=== PATIENT | female | born 1990 | race African-American/Black ===

== ENCOUNTER 2017-06-01 07:46 | Inpatient (IN) | payer OTHER ==
[~2017-06-01 07:46] MED LIST: SUGAMMADEX SODIUM 200 MG/2 ML VIAL IV
[2017-06-01] MEDS ORDERED: METHYLERGONOVINE 0.2 MG INJ IM ×2 (09:00→22:00)
[2017-06-01] MEDS ORDERED: MISOPROSTOL 200 MCG TAB PR ×2 (09:00→22:00)
[2017-06-01] MEDS ORDERED: CARBOPROST 250 MCG INJ IM ×2 (09:00→22:00)
[2017-06-01] MEDS ORDERED: OXYTOCIN 30 UNITS/LR 500 ML IV ×2 (09:00→22:00)
[2017-06-01] MEDS: LACTATED RINGER'S 1,000 ML IV ×3 (09:16→21:42)
[2017-06-01 09:17] LABS: WHITE BLOOD COUNT 4.8 10^3/ul (4.8-10.8)
[2017-06-01 09:17] LABS: ABNORMAL IP MESSAGE 1; HEMATOCRIT 33.9 % (37.0-47.0); HEMOGLOBIN 11.5 g/dl (12.0-16.0); MEAN CORPUSCULAR HEMOGLOBIN 32.5 pg (29.0-33.0); MEAN CORPUSCULAR HGB CONC 33.9 g/dl (32.0-37.0); MEAN CORPUSCULAR VOLUME 95.8 fl (82.0-101.0); MEAN PLATELET VOLUME 14.4 fl (7.4-10.4); PLATELET COUNT 85 10^3/UL (140-415); RED BLOOD COUNT 3.54 10^6/ul (4.20-5.40); RED CELL DISTRIBUTION WIDTH 12.6 % (11.5-14.5)
[2017-06-01 09:23] LABS: ADD MAN DIFF? YES; POSITIVE DIFF @See below
[2017-06-01 09:56] LABS: ANISOCYTOSIS 1+ (0-0); BAND NEUTROPHILS #M 0.4 10^3/ul (0.0-0.6); BAND NEUTROPHILS % (M) 10 % (0-4); GIANT THROMBO% (M) 6 % (0-0); INR 1.02; LYMPHOCYTES #M 1.2 10^3/ul (0.8-2.9); LYMPHOCYTES % (M) 26 % (15-51); METAMYELOCYTES %M 1 % (0-0); MONOCYTE #M 0.3 10^3/ul (0.3-0.9); MONOCYTES % (M) 7 % (0-11); MYELOCYTES % (M) 2 % (0-0); PLATELET ESTIMATE SIG DECREASED; POLYCHROMASIA 3+ (0-0); PROTIME 13.5 Sec (11.9-14.9); PT RATIO 1.1; SEG NEUT #M 2.6 10^3/ul (1.7-7.5); SEGMENTED NEUTROPHILS (M) % 54 % (39-77); SMUDGE%M 2 % (0-0)
[2017-06-01 09:57] LABS: PARTIAL THROMBOPLASTIN TIME 29.7 Sec (25.0-35.0)
[2017-06-01 10:57] LABS: AMPHETAMINE/METHAMPHETAMINE Negative (NEGATIVE); BARBITURATES Negative (NEGATIVE); BENZODIAZEPINES Negative (NEGATIVE); CANNABINOIDS Negative (NEGATIVE); COCAINE Negative (NEGATIVE); OPIATES Negative (NEGATIVE)
[2017-06-01] MEDS: AMPICILLIN 2 GM/NS (PMX) 100 ML IV (11:40)
[2017-06-01 12:42] LABS: HEPATITIS B SURFACE ANTIGEN NEGATIVE (NEGATIVE)
[2017-06-01] MEDS: CITRIC ACID/SODIUM CITRATE 15 ML CUP PO (15:00)
[2017-06-01] MEDS: CEFAZOLIN 2 GM/50 ML (PMX) 50 ML IV (15:02)
[2017-06-01] MEDS: ONDANSETRON 4 MG INJ IV (15:03)
[2017-06-01] MEDS ORDERED: ROCURONIUM 50 MG INJ (15:31)
[2017-06-01] MEDS ORDERED: SUCCINYLCHOLINE CHLORIDE 100 MG/5 ML SYG IV (15:31)
[2017-06-01] MEDS ORDERED: FENTAnyl 50 MCG/ML VIAL (15:31)
[2017-06-01] MEDS ORDERED: PROPOFOL 20 ML (15:31)
[2017-06-01] MEDS ORDERED: OXYTOCIN 10 UNIT INJ (15:33)
[2017-06-01] MEDS ORDERED: DEXAMETHASONE 4 MG/ML 1 ML INJ (15:47)
[2017-06-01] MEDS ORDERED: KETOROLAC 30 MG INJ (15:47)
[2017-06-01] MEDS ORDERED: METOCLOPRAMIDE 10 MG INJ (15:47)
[2017-06-01] MEDS ORDERED: MEPERIDINE 100 MG INJ (16:09)
[2017-06-01] MEDS ORDERED: OXYCODONE/ACETAMINOPHEN (5/325) TAB PO ×2 (16:30)
[2017-06-01] MEDS ORDERED: morphine (1 MG/ML) 10ML SYRINGE IV ×3 (16:30)
[2017-06-01] MEDS ORDERED: LABETALOL HCL 20MG INJ IV (16:30)
[2017-06-01] MEDS ORDERED: FENTAnyl 50 MCG/ML VIAL IV ×2 (16:30)
[2017-06-01] MEDS ORDERED: ALBUMIN HUMAN 5% 250 ML IV (16:30)
[2017-06-01] MEDS ORDERED: METOCLOPRAMIDE 10 MG INJ IV (16:30)
[2017-06-01] MEDS ORDERED: EPHEDrine SULFATE 50 MG/5 ML SYG IV (16:30)
[2017-06-01] MEDS ORDERED: DIPHENHYDRAMINE 50 MG INJ IV ×2 (16:30→23:00)
[2017-06-01] MEDS ORDERED: HYDROmorphONE (0.2 MG/ML) 10ML SYG IV ×2 (16:30)
[2017-06-01] MEDS ORDERED: ONDANSETRON 4 MG INJ IV ×2 (16:30→23:00)
[2017-06-01] MEDS ORDERED: MEPERIDINE 25 MG INJ IV (16:30)
[2017-06-01] MEDS: OXYTOCIN 30 UNITS/LR 500 ML IV ×2 (17:12→21:53)
[2017-06-01] MEDS: HYDROmorphONE (0.2 MG/ML) 10ML SYG IV ×2 (17:18→17:52)
[2017-06-01 19:44] LABS: RAPID PLASMA REAGIN NONREACTIVE (NR)
[2017-06-01] MEDS: FENTAnyl 50 MCG/ML VIAL IV (19:53)
[2017-06-01] MEDS ORDERED: NACL 0.9% 3 ML SYG IV (22:00)
[2017-06-01] MEDS: IBUPROFEN 800 MG TAB PO (22:00)
[2017-06-01] MEDS ORDERED: LANOLIN 7 GM TUBE TOP (22:00)
[2017-06-01] MEDS: morphine 4 MG/ML VIAL IV (22:47)
[2017-06-01] MEDS ORDERED: ACETAMINOPHEN 500 MG TAB PO (23:00)
[2017-06-01] MEDS ORDERED: morphine 2 MG INJ IV (23:00)
[2017-06-01] MEDS ORDERED: HYDROmorphONE 0.5 MG/0.5 ML SYG IV ×2 (23:00)
[2017-06-01] MEDS ORDERED: NALBUPHINE HCL (10 MG/1 ML) INJ IV (23:00)
[2017-06-01] MEDS ORDERED: NALOXONE (0.4 MG/ML) INJ IV (23:00)
[2017-06-02] MEDS: ENOXAPARIN 40 MG/0.4 ML SYG SC (04:15)
[2017-06-02] MEDS: morphine 4 MG/ML VIAL IV ×4 (04:15→15:33)
[2017-06-02] MEDS: LACTATED RINGER'S 1,000 ML IV ×2 (05:42→07:42)
[2017-06-02] MEDS: IBUPROFEN 800 MG TAB PO ×3 (06:00→21:39)
[2017-06-02 08:55] LABS: ADD MAN DIFF? NO
[2017-06-02 09:05] LABS: ABNORMAL IP MESSAGE 1; BASOPHILS % 0.2 % (0.0-2.0); EOSINOPHILS % 0.3 % (0.0-7.0); HEMATOCRIT 28.6 % (37.0-47.0); HEMOGLOBIN 9.8 g/dl (12.0-16.0); LYMPHOCYTES # 1.5 10^3/ul (0.8-2.9); LYMPHOCYTES % 15.8 % (15.0-51.0); MEAN CORPUSCULAR HEMOGLOBIN 32.9 pg (29.0-33.0); MEAN CORPUSCULAR HGB CONC 34.3 g/dl (32.0-37.0); MONOCYTE # 0.8 10^3/ul (0.3-0.9); MONOCYTES % 8.2 % (0.0-11.0); NEUTROPHIL # 6.9 10^3/ul (1.6-7.5); NEUTROPHILS % 74.8 % (39.0-77.0); RED BLOOD COUNT 2.98 10^6/ul (4.20-5.40); RED CELL DISTRIBUTION WIDTH 12.7 % (11.5-14.5)
[2017-06-02 09:05] LABS: WHITE BLOOD COUNT 9.2 10^3/ul (4.8-10.8)
[2017-06-02 09:15] LABS: POSITIVE DIFF @See below
[2017-06-02 09:16] LABS: PLATELET COUNT 87 10^3/UL (140-415)
[2017-06-02] MEDS: HYDROCODONE/APAP (5/325) TAB PO ×2 (18:09→23:28)
[2017-06-03] MEDS: HYDROCODONE/APAP (5/325) TAB PO ×4 (03:02→15:54)
[2017-06-03] MEDS: ENOXAPARIN 40 MG/0.4 ML SYG SC (04:28)
[2017-06-03] MEDS: IBUPROFEN 800 MG TAB PO ×3 (05:30→22:15)
[2017-06-03] MEDS: INFLUENZA VIRUS VACCINE 0.5 ML SYG IM* (16:03)
[2017-06-04] MEDS: HYDROCODONE/APAP (5/325) TAB PO ×2 (01:32→09:35)
[2017-06-04] MEDS: ENOXAPARIN 40 MG/0.4 ML SYG SC (03:48)
[2017-06-04] MEDS: IBUPROFEN 800 MG TAB PO (05:38)
[2017-06-04] MEDS: NA PHOSPHATE/BIPHOS 133 ML ENEMA PR (09:35)
[2017-06-04] MEDS: DIPHTH/TET/ACEL PERTUSS (ADULT) 0.5 ML VIAL IM* (12:20)
[2017-06-04] MEDS: MEASLES,MUMPS,RUBELLA VACCINE INJ SC* (12:29)
== END 2017-06-04 12:35 | disposition home or self-care (01) | DRG 765 ==
LOC: L-D 07:46 → PP1 21:31
PROVIDERS: Obstetrics & Gynecology
PROC: 10D00Z1 Extraction of Products of Conception, Low, Open Approach (ICD-10-PCS; principal; 2017-06-01 15:30)
DX: O34.211 Maternal care for low transverse scar from previous cesarean delivery (principal); O22.23 Superficial thrombophlebitis in pregnancy, third trimester; Z37.0 Single live birth; Z3A.39 39 weeks gestation of pregnancy
CPT/HCPCS: 80307; 85025; 85610; 85730; 86592; 86850; 86870; 86900; 86901; 86920; 87340; 90686; 90715; 94760; 99464

== ENCOUNTER 2017-06-11 20:29 | Emergency (ER) | payer OTHER ==
[2017-06-11] MEDS: SODIUM CHLORIDE 0.9% 1L IRRIG IRR (22:37)
[2017-06-11] MEDS: ACETAMINOPHEN 325 MG TAB PO (22:52)
[2017-06-11] MEDS: BUPIVACAINE 0.5% (MPF) 10 ML VIAL INJ (23:00)
[2017-06-12] MEDS: LIDOCAINE 1% (MDV) 20 ML INJ SC (00:03)
== END 2017-06-12 01:02 | disposition home or self-care (01) ==
LOC: FTE 06-12 01:02
DX: O90.0 Disruption of cesarean delivery wound (principal)
CPT/HCPCS: 99283-25; A4217

== ENCOUNTER 2017-06-17 09:31 | Emergency (ER) | payer SELFPAY, OTHER | END 2017-06-17 09:58 | disposition left against medical advice (07) | LOC: E/R 09:31 | DX: Z53.21 Procedure and treatment not carried out due to patient leaving prior to being seen by health care provider (principal) ==

== ENCOUNTER 2017-06-18 07:54 | Emergency (ER) | payer OTHER | END 2017-06-18 09:36 | disposition home or self-care (01) | LOC: E/R 09:36 | DX: O90.0 Disruption of cesarean delivery wound (principal) | CPT/HCPCS: 99283; Z7502 ==